=== PATIENT | male | born 1965 | race Caucasian/White ===

== ENCOUNTER 2022-07-06 09:41 | Emergency (ER) | payer OTHER ==
[2022-07-06] MEDS ORDERED: HYDROcodone/Acetaminophen 10/325 mg Tablet ONE (09:50)
[2022-07-06] MEDS ORDERED: Orphenadrine Citrate 60 MG/2 ML VIAL ONE (09:50)
[2022-07-06] MEDS ORDERED: Ketorolac Tromethamine 60 MG/2 ML VIAL ONE (09:51)
== END 2022-07-06 11:04 | disposition home or self-care (01) ==
LOC: BURERS 09:41
DX: M54.16 Radiculopathy, lumbar region (principal); X50.0XXA Overexertion from strenuous movement or load, initial encounter; Y93.89 Activity, other specified; Y92.096 Garden or yard of other non-institutional residence as the place of occurrence of the external cause
CPT/HCPCS: 72100; 72170; 96372; J1885; J2360